=== PATIENT | male | born 2000 | race American Indian/Alaskan Native ===

== ENCOUNTER 2021-06-15 19:51 | Emergency (ER) | payer SELFPAY ==
--- NOTE | 2021-06-15 20:45 | Emergency Department Report ---
ED Male HPI - General Chief complaint: Urogenital-Male Stated complaint: FOLLOW-UP/STD CHECK/MED REFILL Time Seen by Provider: 06/15/21 20:29 Source: patient Mode of arrival: Ambulatory Limitations: No Limitations - History of Present Illness Complaint: penile discharge -: days(s) (2-3) - Related Data Allergies Allergy/AdvReac Type Severity Reaction Status Date / Time No Known Allergies Allergy Unverified 06/15/21 20:26 ED Review of Systems ROS: Stated complaint: FOLLOW-UP/STD CHECK/MED REFILL Other details as noted in HPI ED Past Medical Hx - Past Medical History Previous Medical History?: No - Surgical History Past Surgical History?: No ED Physical Exam - General Limitations: No Limitations ED Course Vital Signs 06/15/21 06/15/21 20:24 20:25 Temperature 98.2 F Pulse Rate 63 72 Respiratory 14 Rate O2 Sat by Pulse 98 100 Oximetry Critical care attestation.: If time is entered above; I have spent that time in minutes in the direct care of this critically ill patient, excluding procedure time. ED Disposition Condition: Stable
--- NOTE | 2021-06-15 20:55 | Emergency Department Report ---
Chief Complaint: Urogenital-Male Stated Complaint: FOLLOW-UP/STD CHECK/MED REFILL Time Seen by Provider: 06/15/21 20:29 - HPI History of Present Illness: 21-year-old male presents to the ER today requesting STD treatment. Patient states that he had unprotected sexual intercourse with a fever 2 to 3 days ago and now is having clear penile discharge. He denies any dysuria, rash, testicular pain or swelling or any abdominal pain. Patient states that he had similar symptoms last year after having unprotected sexual intercourse and went to an urgent care and he was given oral antibiotics but is not sure exactly what STD he had. He denies any fever or chills or any additional symptoms at this time. - Exam Vital Signs: Vital Signs 06/15/21 06/15/21 20:24 20:25 Temperature 98.2 F Pulse Rate 63 72 Respiratory 14 Rate O2 Sat by Pulse 98 100 Oximetry MSE screening note: Focused history and physical exam performed. Due to findings the following was ordered: ED Medical Decision Making - Medical Decision Making 21-year-old male presents to the ER today requesting STD treatment. Patient states that he had unprotected sexual intercourse with a fever 2 to 3 days ago and now is having clear penile discharge. He denies any dysuria, rash, testicular pain or swelling or any abdominal pain. Patient states that he had similar symptoms last year after having unprotected sexual intercourse and went to an urgent care and he was given oral antibiotics but is not sure exactly what STD he had. He denies any fever or chills or any additional symptoms at this time. 2055: Patient is well-appearing, nontoxic and not in any acute distress. Patient neurologically intact with a normal gait. Vital signs are stable. In formed patient that I understand that his concern for STD, but at this time is not considered a medical emergency requiring emergent intervention, and recommended that he get full STD testing at one of the local urgent cares or clinic and also to get treatment. . Patient expressed understanding and agree with plan. Patient was stable at time of MSE. ED Disposition for MSE Clinical Impression: Penile discharge, Concern about STD in male without diagnosis Disposition: HOME / SELF CARE / HOMELESS Is pt being admited?: No Does the pt Need Aspirin: No Condition: Stable Time of Disposition: 20:56 Print Language: [place] ED Review of Systems ROS: Stated complaint: FOLLOW-UP/STD CHECK/MED REFILL Other details as noted in HPI Comment: All other systems reviewed and negative Genitourinary: discharge ED Physical Exam - General Limitations: No Limitations General appearance: alert, in no apparent distress - Head Head exam: Present: atraumatic, normocephalic, normal inspection - Eye Eye exam: Present: normal appearance, PERRL, EOMI Pupils: Present: normal accommodation - Respiratory Respiratory exam: Absent: respiratory distress - Cardiovascular Cardiovascular Exam: Present: regular rate - Neurological Exam Neurological exam: Present: alert, oriented X3, CN II-XII intact, normal gait - Psychiatric Psychiatric exam: Present: normal affect, normal mood - Skin Skin exam: Present: intact
== END 2021-06-15 22:00 | disposition home or self-care (01) ==
LOC: ED 19:51
DX: R36.9 Urethral discharge, unspecified (principal); Z20.2 Contact with and (suspected) exposure to infections with a predominantly sexual mode of transmission
CPT/HCPCS: 99282